=== PATIENT | male | born 1985 | race Hispanic/Latino ===

== ENCOUNTER 2019-11-20 12:50 | Emergency (ER) | payer SELFPAY ==
[~2019-11-20] VITALS: Ht 175.3 cm; Wt 177.4 kg
== END 2019-11-20 14:33 | disposition home or self-care (01) ==
LOC: FSED 12:50
DX: R20.2 Paresthesia of skin (principal); M54.12 Radiculopathy, cervical region; E66.01 Morbid (severe) obesity due to excess calories; Z68.42 Body mass index [BMI] 45.0-49.9, adult; F17.210 Nicotine dependence, cigarettes, uncomplicated
CPT/HCPCS: 99282

== ENCOUNTER 2020-03-31 20:19 | Emergency (ER) | payer SELFPAY ==
--- NOTE | 2020-03-31 21:45 | NUR ---
NOT IN BUILDING WHEN NAME CALLED
== END 2020-03-31 21:45 | disposition left against medical advice (07) ==
LOC: FSED 21:45
DX: M25.562 Pain in left knee (principal)

== ENCOUNTER 2022-02-07 17:37 | Emergency (ER) | payer OTHER ==
[~2022-02-07] VITALS: Ht 175.3 cm; Wt 177.4 kg
[2022-02-07] MEDS ORDERED: NAPROXEN250 MG PO (19:12)
== END 2022-02-07 19:27 | disposition home or self-care (01) ==
LOC: ER 18:05
DX: M25.561 Pain in right knee (principal); S83.8X1A Sprain of other specified parts of right knee, initial encounter; X50.1XXA Overexertion from prolonged static or awkward postures, initial encounter; Y93.01 Activity, walking, marching and hiking; Y92.89 Other specified places as the place of occurrence of the external cause; E11.9 Type 2 diabetes mellitus without complications
CPT/HCPCS: 99283